=== PATIENT | male | born 1940 | race Caucasian/White ===

== ENCOUNTER → 2016-05-27 | Day surgery (SDC) | payer MEDICARE, OTHER ==
[~2016-05-27] VITALS: Ht 172.7 cm; Wt 95.3 kg
[2016-05-27] VITALS (7 sets, daily range): BP systolic 115–157; BP diastolic 48–89
[~2016-05-27] MED LIST: ASPIR 8181 MG; Atropine Inj 1mg/10ml Syr IV PRN; COLACE100 MG ORAL; CRESTOR10 M1 PO; CRESTOR20 MG ORAL; DIOVAN HCT 1601 EAC1 PO; DIOVAN HCT 80-1 EACH ORAL; DITROPAN10 MG ORAL; DiphenhydrAMINE 50mg/ml Inj IVP PRN; Hydromorphone 0.5mg/0.5ml inj IVP PRN; Ketorolac 30mg Inj IV PRN; Ketorolac 60mg Inj IV PRN; LINZESS145 MCG PO; LORazepam Inj 2mg/ml 1ml IV PRN; LR 1000ml 1,000 ML IVLG SCH; LR 1000ml ONE; Labetalol 5mg/ml 20ml vial IV PRN; Lidocaine 1% MPF 10mg/ml 5ml ONE; Meperidine 25mg/ml Inj IV PRN; Metoclopramide 10mg/2ml Inj IVP PRN; Midazolam 2mg/2ml Inj IVP PRN; Norco 5mg/325mg tab ORAL PRN; Norco 7.5mg/325mg tab ORAL PRN; OXYBUTYNIN CHLO10 MG PO; Oxycodone/Acetaminophen 5-325 ORAL PRN; PROPRANOLO20 MG/5 M1 PO; Propofol 10mg/ml 20ml IV ONE; VICODIN HP 10-1 EACH ORAL; VITAMIN D2000 UNI3 PO; VITAMIN D250000 UNI1 PO; fentaNYL 100 mcg/2 mL IV PRN
--- NOTE | 2016-05-27 10:31 | Pre-Procedure Note/Attestation ---
Pre-Procedure Note/Attestation Complete Prior to Procedure Planned Procedure: not applicable Procedure Narrative: colonoscopy Indications for Procedure Pre-Operative Diagnosis: rectal cancer Attestation I attest that I discussed the nature of the procedure; its benefits; risks and complications; and alternatives (and the risks and benefits of such alternatives ), prior to the procedure, with the patient (or the patient's legal pharmaceutical specialty representative). I attest that, if there was a reasonable possibility of needing a blood transfusion, the patient (or the patient's legal pharmaceutical specialty representative) was given the [facility] standardized written summary, pursuant to the Yonatan Werner Blood Safety Act ([place] Health and Safety Code # 1645, as amended). I attest that I re-evaluated the patient just prior to the surgery and that there has been no change in the patient's H&P, except as documented below: ANTIONE SAGE May 27, 2016 10:31
--- NOTE | 2016-05-27 10:33 | Short Stay Surgery H&P ---
History of Present Illness History of Present Illness Chief Complaint fu for rectal cancer HPI Aniya Barger is a 75 year old male who was admitted on for Rectal Cancer Patient History Allergies: Coded Allergies: DOXYCYCLINE CALCIUM (Verified Allergy, Intermediate, Rash, 12/28/12) DOXYCYCLINE HYCLATE (Verified Allergy, Intermediate, Rash, 12/28/12) DOXYCYCLINE MONOHYDRATE (Verified Allergy, Intermediate, Rash, 12/28/12) Uncoded Allergies: I.V.IODINE CONTRAST (Allergy, Intermediate, NAUSEA/VOMITING., 12/28/12) PAST MEDICAL HISTORY: (1) Diverticulosis (2) Constipation (3) Rectal cancer (4) Prostate cancer Past Surgeries: Social History: Medication History Scheduled Aspirin* (Aspir 81*), 81 MG DAILY, (Reported) Linaclotide (Linzess), 145 MCG PO DAILY, (Reported) Oxybutynin Chloride (Oxybutynin Chloride Er), 10 MG PO DAILY, (Reported) Oxybutynin Chloride (Oxybutynin Chloride), 10 MG ORAL DAILY, (Reported) Rosuvastatin Calcium (Crestor), 10 MG PO BEDTIME, (Reported) Rosuvastatin Calcium* (Crestor*), 20 MG ORAL DAILY, (Reported) Valsartan/Hydrochlorothiazide 160-25MG (Diovan Hct 160-25 Mg Tablet), 1 TAB PO DAILY, (Reported) Valsartan/Hydrochlorothiazide 80-12.5MG (Diovan Hct 80-12.5 Mg Tablet), 1 TAB ORAL DAILY, (Reported) Scheduled PRN Docusate Sodium* (Colace*), 100 MG ORAL DAILY PRN for Constipation, (Reported) Hydrocodone/Acetaminophen 10-300 Mg Tablet (Vicodin Hp 10-300 Mg Tablet), 1 TAB ORAL Q4H PRN for For Pain, (Reported) Miscellaneous Medications Cholecalciferol (Vitamin D3) (Vitamin D), 2,000 UNIT PO, (Reported) Review of Systems Cardiovascular: Reports: no symptoms Respiratory: Reports: no symptoms Skeletal: Reports: no symptoms Gastrointestinal: Reports: no symptoms Genitourinary: Reports: no symptoms Neurologic: Reports: no symptoms Endocrine: Reports: no symptoms Hematologic: Reports: no symptoms Physical Exam Vital Signs Last Vital Signs Date Time Temp Pulse Resp B/P Pulse Ox O2 Delivery O2 Flow Rate FiO2 05/27/16 10:26 98.1 86 20 157/89 96 Room Air Skin: normal HENT: normal Heart: normal Lungs: normal Abdomen: normal Extremities: normal Plan Plan of Care colonoscopy Final Diagnosis: Attestation Are the patient's medical conditions optimized for surgery? Attestation Response: yes ANTIONE SAGE May 27, 2016 10:33
--- NOTE | 2016-05-27 10:44 | Anethesia Preoperative Eval ---
Anesthesia Pre-op PMH/ROS General Date of Evaluation: May 27, 2016 Anesthesiologist: Yajaira ASA Score: ASA 3 Mallampati Score Class I : Soft palate, uvula, fauces, pillars visible Class II: Soft palate, uvula, fauces visible Class III: Soft palate, base of uvula visible Class IV: Only hard plate visible Mallampati Classification: Class II Surgeon: Kyler Diagnosis: Abd Pain Surgical Procedure: Colonoscopy Anesthesia History: none Family History: no anesthesia problems Allergies: Coded Allergies: DOXYCYCLINE CALCIUM (Verified Allergy, Intermediate, Rash, 12/28/12) DOXYCYCLINE HYCLATE (Verified Allergy, Intermediate, Rash, 12/28/12) DOXYCYCLINE MONOHYDRATE (Verified Allergy, Intermediate, Rash, 12/28/12) Uncoded Allergies: I.V.IODINE CONTRAST (Allergy, Intermediate, NAUSEA/VOMITING., 12/28/12) Medications: see eMAR Past Medical History Cardiovascular: Reports: HTN, other Gastrointestinal/Genitourinary: Reports: other - Hiatal Hernia Hematology/Immune: Reports: other - Rectal, Prostate CA Other: obesity - BMI 31 PSxH Narrative: Prostate, Rectal CA Anesthesia Pre-op Phys. Exam Physician Exam Last Vital Signs Date Time Temp Pulse Resp B/P Pulse Ox O2 Delivery O2 Flow Rate FiO2 05/27/16 10:26 98.1 86 20 157/89 96 Room Air Constitutional: NAD Neurologic: CN 2-12 intact Cardiovascular: RRR Respiratory: CTA Gastrointestinal: S/NT/ND Airway Exam Mallampati Score: Class II MO: limited ROM: limited Teeth: intact Anesthesia Pre-op A/P Studies Pre-op Studies: EKG - LAE, LAFB Risk Assessment & Plan Assessment: ASA 3 Plan: GA Status Change Before Surgery: Rakesh Poole MD May 27, 2016 10:44
--- NOTE | 2016-05-27 10:46 | 48 Hour Post Anesthesia Eval ---
Post Anesthesia Evaluation Procedure: Colonoscopy Date of Evaluation: May 27, 2016 Time of Evaluation: 13:43 Blood Pressure Systolic: 151 0: 62 Pulse Rate: 78 Respiratory Rate: 18 Temperature (Fahrenheit): 98.4 O2 Sat by Pulse Oximetry: 97 Airway: patent Nausea: No Vomiting: No Pain Intensity: 0 Hydration Status: adequate Cardiopulmonary Status: Stable Mental Status/LOC: patient returned to baseline Follow-up Care/Observations: 0 Post-Anesthesia Complications: 0 Follow-up care needed: ready to discharge Rakesh Gates MD May 27, 2016 10:46
--- NOTE | 2016-05-27 10:46 | Immediate Post-Op Evaluation ---
Immediate Post-Op Evalulation Immediate Post-Op Evalulation Procedure: Colonoscopy Date of Evaluation: May 27, 2016 Time of Evaluation: 11:28 IV Fluids: 300 LR Blood Products: 0 Estimated Blood Loss: 1 Urinary Output: 0 Blood Pressure Systolic: 118 Blood Pressure Diastolic: 50 Pulse Rate: 83 Respiratory Rate: 16 O2 Sat by Pulse Oximetry: 97 Temperature (Fahrenheit): 98 Pain Score (1-10): 0 Nausea: No Vomiting: No Complications 0 Patient Status: awake, reacts, patent, none Hydration Status: adequate Rakesh Gates MD May 27, 2016 10:46
--- NOTE | 2016-05-27 11:08 | Endoscopy Procedure Note ---
Endoscopy Procedure Note Indication for Procedure: rectal ca fu Procedures Performed: colonoscopy Operative Findings/Diagnosis: 2 polyps Specimen: yes Pt Tolerated Procedure Well: Yes Estimated Blood Loss: none Anesthesiologist: humberto Anesthesia: MAC Implant(s) used?: No 50 yrs or older w/o bx or poly: No 10yrs. F/U not recommended: Yes If not recommended, why?: Above average risk 10 yrs. F/U needed: Yes 18 years or older w/prev. colo: Yes <3yrs. since last colonoscopy: Yes Med reason:<3 yrs.: cancer history ANTIONE SAGE May 27, 2016 11:08
--- NOTE | 2016-05-27 21:37 | Procedure Note ---
DATE OF PROCEDURE: 05/27/2016 SURGEON: Cuate Chávez M.D. PROCEDURE: Colonoscopy with snare polypectomy and biopsy. ANESTHESIOLOGIST: Dr. Gates. INSTRUMENT: Olympus adult flexible colonoscope. INDICATION: History of rectal cancer, he is here for follow up colonoscopy. REASON FOR PROCEDURE: The procedure, risks, benefits, and possible consequences, including hemorrhage, aspiration, perforation and infection, and alternative treatments, were explained to the patient/legal guardian by Dr. Cuate Chávez and the patient/legal guardian understood and accepted these risks. DESCRIPTION OF PROCEDURE: After informed consent was obtained and the patient was adequately sedated, first rectal exam was performed, which was positive for internal and external hemorrhoids. Then, the scope was advanced from the rectum into the cecum documented by appendiceal orifice, ileocecal valve, and right upper quadrant palpation. Quality of prep was fair. The patient had evidence of sigmoid diverticulosis. The patient had evidence of one sessile polyp in the transverse colon but about 6 cm from the anal verge roughly measured about 7 mm to 8 mm was removed with the snare polypectomy technique. There was another diminutive polyp next to it in the same area, which was biopsied. The rest of the colonic exam was grossly normal. Anastomosis was seen in the rectum with retained and some inflammatory changes around it. Retroflexion of rectum was limited given there was stool in the rectum but there was evidence of internal hemorrhoids. The patient tolerated the procedure well without any complication. SUMMARY OF FINDINGS: 1. Diverticulosis. 2. Two colonic polyps removed, see above for details. 3. Fair prep. 4. History of rectal surgery with tattoo and at the surgical site. 5. Internal and external hemorrhoids. RECOMMENDATIONS: Follow up biopsies and treat accordingly. I want to thank Dr. Ramon Deal for this kind referral. Cuate Chávez M.D. DR: Kandice JOB#: [id number] CC: Ramon Deal M.D.; Fax#: [phone]
--- NOTE | 2016-06-29 08:29 | Cardiology Report ---
APPROVED REPORT EKG Measurement Heart [id number] OR 190P38 [id number] FZo300 Normal sinus rhythm Possible Left atrial enlargement Left anterior fascicular block Abnormal ECG
== END | disposition home or self-care (01) ==
LOC: GAS 09:40
DX: Z85.048 Personal history of other malignant neoplasm of rectum, rectosigmoid junction, and anus (principal); D12.3 Benign neoplasm of transverse colon; K63.89 Other specified diseases of intestine; K64.8 Other hemorrhoids; K64.4 Residual hemorrhoidal skin tags; K57.30 Diverticulosis of large intestine without perforation or abscess without bleeding; K59.00 Constipation, unspecified; I10 Essential (primary) hypertension; K44.9 Diaphragmatic hernia without obstruction or gangrene; E66.09 Other obesity due to excess calories; Z68.31 Body mass index [BMI] 31.0-31.9, adult; Z85.46 Personal history of malignant neoplasm of prostate; Z88.3 Allergy status to other anti-infective agents; Z91.041 Radiographic dye allergy status; Z79.82 Long term (current) use of aspirin; Z79.899 Other long term (current) drug therapy
CPT/HCPCS: 45380; 45385; 93005; J2704; J7120; 94003; 94150

== ENCOUNTER 2020-03-14 11:07 | Outpatient (CLI) | payer MEDICARE, OTHER ==
[~2020-03-14 11:07] MED LIST changes: -Atropine Inj 1mg/10ml Syr IV PRN; -DiphenhydrAMINE 50mg/ml Inj IVP PRN; -Hydromorphone 0.5mg/0.5ml inj IVP PRN; -Ketorolac 30mg Inj IV PRN; -Ketorolac 60mg Inj IV PRN; -LORazepam Inj 2mg/ml 1ml IV PRN; -LR 1000ml 1,000 ML IVLG SCH; -LR 1000ml ONE; -Labetalol 5mg/ml 20ml vial IV PRN; -Lidocaine 1% MPF 10mg/ml 5ml ONE; -Meperidine 25mg/ml Inj IV PRN; -Metoclopramide 10mg/2ml Inj IVP PRN; -Midazolam 2mg/2ml Inj IVP PRN; -Norco 5mg/325mg tab ORAL PRN; -Norco 7.5mg/325mg tab ORAL PRN; -Oxycodone/Acetaminophen 5-325 ORAL PRN; -Propofol 10mg/ml 20ml IV ONE; -fentaNYL 100 mcg/2 mL IV PRN
[2020-03-14 11:22] VITALS: BP 114/80
--- NOTE | 2020-03-16 15:30 | Consultation ---
DATE OF CONSULTATION: 03/14/2020 GASTROENTEROLOGY CONSULTATION CONSULTING PHYSICIAN: Cuate Chávez MD. CHIEF COMPLAINT: History of prostate cancer. HISTORY OF PRESENT ILLNESS: This is a very pleasant 79-year-old male, known to me with history of rectal cancer, prostate cancer, had a partial colectomy, chemoradiation and is here for followup for colonoscopy. The patient also suffers from chronic constipation and takes on daily basis. PAST MEDICAL HISTORY: 1. Rectal cancer. 2. Prostate cancer. 3. Chronic constipation. 4. History of urethral leak on the left side. ALLERGIES: Doxycycline, iodine contrast. MEDICATIONS: Please see medication reconciliation list. SOCIAL HISTORY: The patient denies any tobacco, alcohol, or drug abuse. FAMILY HISTORY: Noncontributory. REVIEW OF SYSTEMS: A 10-point review of systems was performed and pertinent positives in HPI. PHYSICAL EXAMINATION: GENERAL: A well-developed male, in no acute distress. VITAL SIGNS: Temperature 97.3, blood pressure 114/82, pulse 71, respirations 20. HEENT: Normocephalic and atraumatic. Sclerae are anicteric. NECK: Supple. No evidence of obvious lymphadenopathy. CARDIOVASCULAR: Regular rate and rhythm. Plus S1 and S2. LUNGS: Clear to auscultation bilaterally. ABDOMEN: Positive bowel sounds. Soft and nontender. No rebound. No guarding. No peritoneal sign. EXTREMITIES: No cyanosis, no clubbing, no edema. ASSESSMENT AND PLAN: This is an 79-year-old male with a history of rectal cancer, prostate cancer, chronic GERD, chronic constipation, history of endoscopy and colonoscopy. The patient was given instruction for colonoscopy. Risks and benefits of procedure was explained to him. We will schedule him . Cuate Chávez M.D. DR: LUIS JOB#: [id number] CC:
== END 2020-03-14 13:07 | disposition home or self-care (01) ==
LOC: PAN 11:07
DX: K59.09 Other constipation (principal); Z85.048 Personal history of other malignant neoplasm of rectum, rectosigmoid junction, and anus; Z85.46 Personal history of malignant neoplasm of prostate; Z90.49 Acquired absence of other specified parts of digestive tract
CPT/HCPCS: 99212

== ENCOUNTER 2020-04-10 07:25 | Day surgery (SDC) | payer MEDICARE, OTHER ==
[~2020-04-10] VITALS: Ht 177.8 cm; Wt 95.3 kg
[2020-04-10] VITALS (8 sets, daily range): BP systolic 124–152; BP diastolic 48–76
--- NOTE | 2020-04-10 07:00 | Anethesia Preoperative Eval ---
Anesthesia Pre-op PMH/ROS General Date of Evaluation: Apr 10, 2020 Time of Evaluation: 06:54 Anesthesiologist: moses ASA Score: ASA 4 Mallampati Score Class I : Soft palate, uvula, fauces, pillars visible Class II: Soft palate, uvula, fauces visible Class III: Soft palate, base of uvula visible Class IV: Only hard plate visible Mallampati Classification: Class II Surgeon: bari Diagnosis: gerd, colon screening Surgical Procedure: egd/colonoscopy Anesthesia History: none Social History: current smoker, alcohol use Family History: no anesthesia problems Allergies: Coded Allergies: DOXYCYCLINE CALCIUM (Verified Allergy, Intermediate, Rash, 12/28/12) DOXYCYCLINE HYCLATE (Verified Allergy, Intermediate, Rash, 12/28/12) DOXYCYCLINE MONOHYDRATE (Verified Allergy, Intermediate, Rash, 12/28/12) Uncoded Allergies: I.V.IODINE CONTRAST (Allergy, Intermediate, NAUSEA/VOMITING., 12/28/12) Medications: see eMAR Patient NPO?: Yes Past Medical History Cardiovascular: Reports: HTN, other - hypercholesterolemia Gastrointestinal/Genitourinary: Reports: GERD, other - prostate cancer, kidney stone, rectal cancer, ureteral leak, diverticulosis, constipation, hiatal hernia Neurologic/Psychiatric: Reports: other - anorexia, claustraphobia, macular degeneration HEENT: Reports: UNGA (L), UNGA (R), other - decreased visual acuity Musculoskeletal/Integumentary: Reports: OA PSxH Narrative: lap vale, appendectomy Anesthesia Pre-op Phys. Exam Physician Exam Last Vital Signs Date Time Temp Pulse Resp B/P (MAP) Pulse Ox O2 Delivery O2 Flow Rate FiO2 04/10/20 08:30 Room Air 04/10/20 07:59 97.0 78 18 152/76 95 Constitutional: NAD Neurologic: CN 2-12 intact Cardiovascular: RRR Respiratory: CTA Gastrointestinal: S/NT/ND Airway Exam Mallampati Score: Class II MO: limited Neck: flexible TMD: 2fb ROM: limited Anesthesia Pre-op A/P Labs Microbiology Date/Time Source Procedure Growth Status 04/10/20 08:20 Nasopharynx SARS-CoV-2 RdRp Gene Assay - Final Complete Risk Assessment & Plan Assessment: asa4 Plan: mac Status Change Before Surgery: No Pre-Antibiotics Drug: Judith Marie MD Apr 10, 2020 07:00
[~2020-04-10 07:25] MED LIST changes: +Atropine Inj 1mg/10ml Syr IVP PRN; +DiphenhydrAMINE 50mg/ml Inj IVP PRN; +Midazolam 2mg/2ml Inj IVP PRN; +fentaNYL 100 mcg/2 mL IV PRN
[2020-04-10] MEDS ORDERED: Lidocaine 1% MPF 10mg/ml 5ml ONE (07:26)
[2020-04-10] MEDS ORDERED: LR 1000ml ONE (07:26)
--- NOTE | 2020-04-10 09:08 | Pre-Procedure Note/Attestation ---
Pre-Procedure Note/Attestation Complete Prior to Procedure Planned Procedure: not applicable Procedure Narrative: esophagogastroduodenoscopy and colonoscopy Indications for Procedure Pre-Operative Diagnosis: h/o rectal CA, GERD Attestation I attest that I discussed the nature of the procedure; its benefits; risks and complications; and alternatives (and the risks and benefits of such alte rnatives), prior to the procedure, with the patient (or the patient's legal wireless sales representative). I attest that, if there was a reasonable possibility of needing a blood transfusion, the patient (or the patient's legal wireless sales representative) was given the [place] [facility] standardized written summary, pursuant to the Yonatan Werner Blood Safety Act ([place] Health and Safety Code # 1645, as amended). I attest that I re-evaluated the patient just prior to the surgery and that there has been no change in the patient's H&P, except as documented below: Cuate Chávez MD Apr 10, 2020 09:08
--- NOTE | 2020-04-10 09:08 | Short Stay Surgery H&P ---
History of Present Illness History of Present Illness Chief Complaint see office consult note HPI Aniya Barger is a 79 year old male who was admitted on for Gerd, Colon Screening Patient History Allergies: Coded Allergies: DOXYCYCLINE CALCIUM (Verified Allergy, Intermediate, Rash, 12/28/12) DOXYCYCLINE HYCLATE (Verified Allergy, Intermediate, Rash, 12/28/12) DOXYCYCLINE MONOHYDRATE (Verified Allergy, Intermediate, Rash, 12/28/12) Uncoded Allergies: I.V.IODINE CONTRAST (Allergy, Intermediate, NAUSEA/VOMITING., 12/28/12) Medication History Scheduled Oxybutynin Chloride (Oxybutynin Chloride Er), 10 MG PO DAILY, (Reported) Rosuvastatin Calcium (Crestor), 10 MG PO BEDTIME, (Reported) Valsartan/Hydrochlorothiazide 160-25MG (Diovan Hct 160-25 Mg Tablet), 1 TAB PO DAILY, (Reported) Scheduled PRN Docusate Sodium* (Colace*), 100 MG ORAL DAILY PRN for Constipation, (Reported) Hydrocodone/Acetaminophen 10-300 Mg Tablet (Vicodin Hp 10-300 Mg Tablet), 1 TAB ORAL Q4H PRN for For Pain, (Reported) Miscellaneous Medications Cholecalciferol (Vitamin D3) (Vitamin D), 2,000 UNIT PO, (Reported) Physical Exam Vital Signs Last Vital Signs Date Time Temp Pulse Resp B/P (MAP) Pulse Ox O2 Delivery O2 Flow Rate FiO2 04/10/20 08:30 Room Air 04/10/20 07:59 97.0 78 18 152/76 95 Plan Attestation Are the patient's medical conditions optimized for surgery? Cuate Chávez MD Apr 10, 2020 09:08
--- NOTE | 2020-04-10 09:46 | Endoscopy Procedure Note ---
Endoscopy Procedure Note General Indication for Procedure: h/o of rectal CA, GERD Procedures Performed: EGD, colonoscopy Operative Findings/Diagnosis: diverticulosis, gastritis, polyp Specimen: yes Pt Tolerated Procedure Well: Yes Estimated Blood Loss: none Anesthesia Anesthesiologist: joan Anesthesia: MAC Inserted Devices Implant(s) used?: No Quality Quality of Bowel Preparation: Fair Did scope reach the cecum?: Yes Was there any complications?: No GI Core Measures 50 yrs or older w/o bx or poly: No 10yrs. F/U recommended: Yes If not recommended, why?: Above average risk 18 years or older w/prev. colo: Yes <3yrs. since last colonoscopy: No Cuate Chávez MD Apr 10, 2020 09:46
--- NOTE | 2020-04-10 09:58 | Immediate Post-Op Evaluation ---
Immediate Post-Op Evalulation Immediate Post-Op Evalulation Procedure: egd/colonoscopy w/bx Date of Evaluation: Apr 10, 2020 Time of Evaluation: 09:58 IV Fluids: 550ml lr Blood Products: none Estimated Blood Loss: negligible Blood Pressure Systolic: 124 Blood Pressure Diastolic: 61 Pulse Rate: 82 Respiratory Rate: 18 O2 Sat by Pulse Oximetry: 98 Temperature (Fahrenheit): 97.7 Pain Score (1-10): 0 Nausea: No Vomiting: No Complications none Patient Status: awake, reacts, patent Hydration Status: adequate Drug: Judith Marie MD Apr 10, 2020 09:58
--- NOTE | 2020-04-10 10:01 | 48 Hour Post Anesthesia Eval ---
Post Anesthesia Evaluation Procedure: egd/colonoscopy w/bx Date of Evaluation: Apr 10, 2020 Time of Evaluation: 10:00 Blood Pressure Systolic: 130 0: 70 Pulse Rate: 74 Respiratory Rate: 18 Temperature (Fahrenheit): 97.7 O2 Sat by Pulse Oximetry: 98 Airway: patent Nausea: No Vomiting: No Pain Intensity: 0 Hydration Status: adequate Cardiopulmonary Status: stable Mental Status/LOC: patient returned to baseline Post-Anesthesia Complications: none Follow-up care needed: N/A Judith Winter MD Apr 10, 2020 10:01
--- NOTE | 2020-04-10 10:30 | Procedure Note ---
DATE OF PROCEDURE: 04/10/2020 SURGEON: Cuate Chávez MD PROCEDURE: Upper endoscopy with biopsy and colonoscopy with snare polypectomy and biopsy and hemostasis. ANESTHESIA: Per Dr. Breaux. INSTRUMENT: Olympus adult flexible endoscope and colonoscope. INDICATION: History of rectal cancer is here for followup. Also, patient has chronic GERD. REASON FOR PROCEDURE: The procedure, risks, benefits, and possible consequences, including hemorrhage, aspiration, perforation and infection, and alternative treatments, were explained to the patient/legal guardian by Dr. Caute Chávez and the patient/legal guardian understood and accepted these risks. DESCRIPTION OF PROCEDURE: After informed consent was obtained and patient was adequately sedated, Olympus upper endoscope was advanced from mouth into the second portion of duodenum and retroflexion was performed in the stomach. GE junction was found to be about 45 cm from the incisors. No evidence of any esophagitis. In the stomach, there was diffuse gastritis. Random biopsies from antrum and body was obtained to rule out H. pylori infection. The rest of the upper endoscopic examination grossly looked within normal limits. At this time, the upper endoscope was retrieved. Patient was turned over for colonoscopy. First, rectal exam was performed, which was positive for internal hemorrhoids. Then the scope was advanced from the rectum into the cecum, then subsequently to terminal ileum. Quality of prep was adequate. There was still some solid material towards the cecum and the right colon, which we have tried to wash as best as we could. I would say about 10% of the right colon was not examined given this prep. Patient had one polyp in the transverse colon, removed with cold snare polypectomy technique. There was diverticulosis, both in the right and left colon, but more prominent in the left colon. Anastomosis from the rectal cancer was in the rectum. There was a retained suture. There were some inflammatory changes and polyp at the anastomosis, which was biopsied. After the biopsy stopped bleeding, so we ended up putting a 60 mm hemoclip to control the bleeding and successful. SUMMARY OF FINDINGS: 1. Gastritis, status post biopsy. 2. One colonic polyp removed. See above for details. 3. Inflammatory changes in the polyp at the anastomosis, status post biopsy and hemoclip. 4. Diverticulosis of the right and left colon. 5. Internal hemorrhoids. RECOMMENDATIONS: Follow up biopsy results and treat accordingly. Cuate Chávez M.D. DR: CONNOR JOB#: [id number] CC:
[2020-04-10] MEDS ORDERED: Heplock Flush 100 units/ml 3 ml syr ONE (10:55)
[2020-04-10] MEDS ORDERED: Heplock Flush 100 units/ml 3 ml syr INJ ONE (11:00)
== END 2020-04-10 11:20 | disposition home or self-care (01) ==
LOC: GAS 07:25
DX: K21.9 Gastro-esophageal reflux disease without esophagitis (principal); Z85.048 Personal history of other malignant neoplasm of rectum, rectosigmoid junction, and anus; K63.5 Polyp of colon; K29.70 Gastritis, unspecified, without bleeding; K57.90 Diverticulosis of intestine, part unspecified, without perforation or abscess without bleeding; K64.8 Other hemorrhoids; Z88.8 Allergy status to other drugs, medicaments and biological substances; Z79.899 Other long term (current) drug therapy; F17.200 Nicotine dependence, unspecified, uncomplicated; I10 Essential (primary) hypertension; E78.00 Pure hypercholesterolemia, unspecified; Z85.46 Personal history of malignant neoplasm of prostate; M19.90 Unspecified osteoarthritis, unspecified site; Z90.89 Acquired absence of other organs; Z90.49 Acquired absence of other specified parts of digestive tract; Z87.442 Personal history of urinary calculi
CPT/HCPCS: 43239; 45380; 45382; 45385; 94003; J1642; J2704; J7120; U0002; 94150

== ENCOUNTER 2020-04-17 14:05 | Outpatient (CLI) | payer MEDICARE, OTHER ==
[~2020-04-17 14:05] MED LIST changes: -Atropine Inj 1mg/10ml Syr IVP PRN; -DiphenhydrAMINE 50mg/ml Inj IVP PRN; -Midazolam 2mg/2ml Inj IVP PRN; -fentaNYL 100 mcg/2 mL IV PRN
--- NOTE | 2020-04-18 12:35 | General Progress Note ---
Subjective ROS Limited/Unobtainable: Yes Allergies: Coded Allergies: DOXYCYCLINE CALCIUM (Verified Allergy, Intermediate, Rash, 12/28/12) DOXYCYCLINE HYCLATE (Verified Allergy, Intermediate, Rash, 12/28/12) DOXYCYCLINE MONOHYDRATE (Verified Allergy, Intermediate, Rash, 12/28/12) Uncoded Allergies: I.V.IODINE CONTRAST (Allergy, Intermediate, NAUSEA/VOMITING., 12/28/12) Objective General Appearance: alert EENT: normal ENT inspection Neck: supple Cardiovascular: normal rate Respiratory/Chest: decreased breath sounds Abdomen: normal bowel sounds, non tender, soft Extremities: non-tender Assessment/Plan Assessment/Plan: SUMMARY OF FINDINGS: 1. Gastritis, status post biopsy. 2. One colonic polyp removed. See above for details. 3. Inflammatory changes in the polyp at the anastomosis, status post biopsy and hemoclip. 4. Diverticulosis of the right and left colon. 5. Internal hemorrhoids. Cuate Chávez MD Apr 18, 2020 12:35
== END 2020-04-17 16:05 | disposition home or self-care (01) ==
LOC: PAN 14:05
DX: K29.70 Gastritis, unspecified, without bleeding (principal); K63.5 Polyp of colon; K57.90 Diverticulosis of intestine, part unspecified, without perforation or abscess without bleeding; K64.8 Other hemorrhoids; Z88.8 Allergy status to other drugs, medicaments and biological substances; Z91.041 Radiographic dye allergy status
CPT/HCPCS: 99212